=== PATIENT | male | born 1945 | race Caucasian/White ===

== ENCOUNTER 2024-02-04 20:36 | Observation (INO) ==
--- NOTE | 2024-02-04 21:05 | Emergency Department Note ---
Impression & Plan Acute pain of left hip, Ambulatory dysfunction ED Provider Note NAME: ELOY SOLER AGE: 78 SEX: M : 1945 ARRIVES VIA: Walk-In INFORMANT: Patient, ED PROVIDER(S): Colin Juarez DO CHIEF COMPLAINT: Hip pain HPI: The patient is a 78-year-old male who presented to the emergency department for an evaluation of hip pain. The patient was walking up some stairs when he felt a pulling sensation in the back of his left thigh. The patient kicked the step accidentally he thinks this is what started the pain. He has been having trouble with sciatica over the course of the last few days. The patient denies having any fever. He denies having any other trauma. The patient has not been seen by his family doctor for the symptoms. The patient has been treated for sciatica recently. ROS: See above HPI for pertinent positives & negatives. A total of 10 systems reviewed and were otherwise negative. PAST MEDICAL HISTORY: See Below PAST SURGICAL HISTORY: See Below FAMILY HISTORY: See Below SOCIAL HISTORY: See Below HOME MEDICATIONS: See Below ALLERGIES: See Below VITALS: See Below PHYSICAL EXAMINATION: GENERAL: Patient is awake alert in no acute distress patient is resting comfortably and showing no signs of anxiety EYES: The conjunctivae are clear. The pupils are round and reactive. EARS, NOSE, MOUTH AND THROAT: The nose is without any evidence of any deformity. NECK: The neck is nontender and supple. RESPIRATORY: Normal respiratory effort is noted there is no evidence of wheezing rhonchi or rales CARDIOVASCULAR: Regular rate and rhythm noted there no murmurs rubs or gallops normal S1 normal S2. GASTROINTESTINAL: The abdomen is soft. Abdomen is nontender. BACK: No midline tenderness or or step-off noted range of motion in flexion extension as well as rotation no signs of muscle spasm noted MUSCULOSKELETAL/EXTREMITIES: The patient prefers to hold the left hip in flexion. He does have palpable tenderness over the knee flexors. There is no swelling. Pulses are symmetric in both feet. SKIN: There is no obvious evidence of any rash. There are no petechiae, pallor or cyanosis noted. NEUROLOGIC: Patient is awake alert and oriented x3. MEDICAL DECISION MAKING: The patient is a 78-year-old male who has a history of diabetes who presented to the emergency department for leg pain. The patient's been having some problems with sciatica and posterior left thigh pain. He was walking up his stairs today when he missed stepped and jammed his left foot into one of the stairs. After that he felt a pulling sensation in the back of his left thigh. The patient did not appear to have any bony abnormality to my interpretation of his x-rays. He was treated with pain medication in the emergency department. He was still unable to ambulate even with the help of a walker. I discussed the patient's laboratory and radiographic studies with him. Given his inability to ambulate I discussed his condition with the on-call [facility] hospitalist. They have agreed to evaluate the patient in the emergency department for further jaylon gement and disposition. Triage Nursing notes reviewed. Prior medical records reviewed Vital Signs: reviewed and remarkable for elevated blood pressure. Differential diagnosis: Fracture, subluxation, dislocation, contusion, ligamentous injury, neurovascular, compartment syndrome, rhabdomyolysis, as well as other pathologies. ER treatment provided: See below Diagnostics interpreted by me: ECG: none Cardiac Monitoring: An order was placed for continuous cardiac monitoring. The monitor shows a rate of 58 bpm with sinus bradycardia. Laboratory studies: As stated above and show below. Imaging studies: See below. Radiographic imaging was reviewed by myself Consultation(s): I discussed this case with Dr. Yang who is on-call for the [facility]. Past Med/Surg History Problem List (Updated 02/04/24 @ 23:19 by Colin Juarez DO) Ambulatory dysfunction (Acute) Acute pain of left hip (Acute) Neurogenic claudication due to lumbar spinal stenosis Diabetes type 2, controlled Diabetes HTN (hypertension) Medical History Hypercholesteremia BPH (benign prostatic hyperplasia) Hypothyroidism Carpal tunnel syndrome Surgical History History of carpal tunnel surgery Social History Smoking Status: Never smoker Hx Alcohol Use: Yes Alcohol type: beer and wine Alcohol type Comment: socially a few times a year Hx Substance Use: No Preferred Language: Romanian Visual Impairment: No Limitations Hearing Ability: Hard of Hearing Beliefs That Will Affect Care: None marital status: Current Living Situation: Spouse current occupational status: employed current occupation: [employer] Feels Safe at Home: Yes Allergies Allergies Allergy/AdvReac Type Severity Reaction Status Date / Time No Known Drug Allergies AdvReac Verified 01/12/24 14:32 pollen extracts AdvReac Verified 01/12/24 14:32 cats AdvReac Uncoded 01/12/24 14:32 Home Meds Home Medications Medication Instructions Recorded Confirmed aspirin 81 mg capsule 81 mg PO DAILY 07/06/22 02/04/24 cholecalciferol (vitamin D3) 25 25 mcg PO DAILY 07/06/22 02/04/24 mcg (1,000 unit) capsule gabapentin 400 mg capsule 800 mg PO BID 07/06/22 02/04/24 levothyroxine 150 mcg capsule 150 mcg PO DAILY 07/06/22 02/04/24 lisinopril 5 mg tablet 5 mg PO DAILY 07/06/22 02/04/24 multivitamin 1 tab PO DAILY 07/06/22 02/04/24 saw palmetto 450 mg capsule 450 mg PO BID 07/06/22 02/04/24 glimepiride 2 mg tablet 2 mg PO BID 01/12/24 02/04/24 simvastatin 40 mg tablet 40 mg PO DAILY 02/04/24 02/04/24 tamsulosin 0.4 mg capsule 0.8 mg PO DAILY 02/04/24 02/04/24 Results & Data (ED) Vital Signs Vital Signs - 24 hr 02/04/24 20:38 02/04/24 23:04 Temperature 36.6 C Temperature Source Temporal Artery Scan Pulse Rate 68 58 L Respiratory Rate 18 Blood Pressure 157/99 H Blood Pressure Mean 118 Pulse Oximetry 97 Oxygen Delivery Method Room Air Sepsis Recent Fever Within 48 Hours No Sepsis New/Unexplained Change in Mental Status No Sepsis Action Taken by Nursing No Action Required Home Medications Current Medication List: was personally reviewed by me Administered Medications Discontinued Medications Oxycodone HCl (Oxycodone Hcl Ir 5 Mg Tab (Immediate Release)) 5 mg PO NOW STA Stop: 02/04/24 20:49 Last Admin: 02/04/24 21:48 Dose: 5 mg Documented By: TOÑA Imaging Data Attestation: I personally reviewed and interpreted this imaging study as follows: My Impression: X-ray of the left femur left hip and pelvis were obtained in the emergency department. My interpretation is no definite fracture, final report pending. Discharge Plan Visit Data Chief Complaint: Hip Pain Stated Complaint: LT HIP POPPED/PAIN, THREW HIP OUT WALKING ED Provider: Colin Juarez Discharge Problem: Acute pain of left hip, Ambulatory dysfunction Patient Disposition: Being Evaluated by Hospitalist Forms Stand Alone Forms: [facility] Prescriptions Prescriptions: No Action lisinopril 5 mg tablet 5 mg PO DAILY levothyroxine 150 mcg capsule 150 mcg PO DAILY gabapentin 400 mg capsule 800 mg PO BID saw palmetto 450 mg capsule 450 mg PO BID Rx Instructions: give with food (meal/snack) aspirin 81 mg capsule 81 mg PO DAILY cholecalciferol (vitamin D3) 25 mcg (1,000 unit) capsule 25 mcg PO DAILY multivitamin Tablet 1 tab PO DAILY glimepiride 2 mg tablet 2 mg PO BID simvastatin 40 mg tablet 40 mg PO DAILY tamsulosin 0.4 mg capsule 0.8 mg PO DAILY Referrals Referrals: Angel Dorsey DO [Primary Care Provider] -
[2024-02-04] MEDS: oxyCODONE HCL IR 5 MG TAB (IMMEDIATE RELEASE) PO STA (21:48)
[2024-02-04] MEDS: MoRPHine SULFATE 4 MG/ML 1 ML CARP\\VIAL IV STA (23:38)
--- NOTE | 2024-02-04 23:38 | History & Physical Report ---
Date of Service February 04, 2024 Assessment & Plan (1) Left hamstring injury: (2) Hamstring tendon rupture: (3) Diabetes: (4) HTN (hypertension): (5) BPH (benign prostatic hyperplasia): Plan High-grade tear of left hamstring tendons- Patient with severe pain left posterior upper thigh causing ambulatory dysfunction CT scan of abdomen pelvis was negative CT scan of left femur shows high-grade tear of hamstring tendons, with recommendation for MRI of left hip Acetaminophen 650 mg by mouth every 6 hours as needed for mild pain or fever Morphine sulfate 2 mg IV every 3 hours as needed for moderate pain Morphine sulfate 4 mg IV every 3 hours as needed for severe pain Radiology is recommending MRI of left hip, which was initially avoided due to severe claustrophobia, but will be ordered with sedation, lorazepam 0.5 mg IV x 1 Consult orthopedic surgery Diabetes mellitus with neuropathy- Hold glimepiride Placed on Accu-Cheks with NovoLog SSI Continue gabapentin Hypertension- Hold lisinopril BPH with LUTS- Continue tamsulosin History of Present Illness Chief Complaint: The patient presents to the emergency department with worsening left hip and in particular left posterior upper leg pain over the past week Primary Care Provider: Angel Dorsey DO The patient is a 78-year-old male with a past medical history including diabetes mellitus, hypertension, and neurogenic claudication due to lumbar spinal stenosis. He presents to the emergency department with report of initially developing pain in his left posterior upper thigh about 1 week ago, after hearing a loud pop while he was bending over. Today he was walking up steps, and his foot hit the top step, and he developed acutely worsened pain in the same left upper posterior thigh area. He has been unable to walk due to the severity of this pain. Allergies Allergy/AdvReac Type Severity Reaction Status Date / Time cat dander AdvReac Unknown Unknown Verified 02/04/24 23:35 No Known Drug Allergies AdvReac Unknown Verified 02/04/24 23:35 pollen extracts AdvReac Unknown Verified 02/04/24 23:35 Home Medications Medication Instructions Recorded Confirmed Type aspirin 81 mg capsule 81 mg PO DAILY 07/06/22 02/04/24 History cholecalciferol (vitamin D3) 25 25 mcg PO DAILY 07/06/22 02/04/24 History mcg (1,000 unit) capsule gabapentin 400 mg capsule 800 mg PO BID 07/06/22 02/04/24 History levothyroxine 150 mcg capsule 150 mcg PO DAILY 07/06/22 02/04/24 History lisinopril 5 mg tablet 5 mg PO DAILY 07/06/22 02/04/24 History multivitamin 1 tab PO DAILY 07/06/22 02/04/24 History saw palmetto 450 mg capsule 450 mg PO BID 07/06/22 02/04/24 History glimepiride 2 mg tablet 2 mg PO BID 01/12/24 02/04/24 History simvastatin 40 mg tablet 40 mg PO DAILY 02/04/24 02/04/24 History tamsulosin 0.4 mg capsule 0.8 mg PO DAILY 02/04/24 02/04/24 History Past Med/Surg History Problem List (Updated 02/05/24 @ 02:16 by Shubham Bravo MD) BPH (benign prostatic hyperplasia) Hamstring tendon rupture Left hamstring injury Ambulatory dysfunction (Acute) Acute pain of left hip (Acute) Neurogenic claudication due to lumbar spinal stenosis Diabetes type 2, controlled Diabetes HTN (hypertension) Medical History Hypercholesteremia BPH (benign prostatic hyperplasia) Hypothyroidism Carpal tunnel syndrome Surgical History History of carpal tunnel surgery Social History Smoking Status: Never smoker Hx Alcohol Use: Yes Alcohol type: beer and wine Alcohol type Comment: socially a few times a year Hx Substance Use: No Preferred Language: Georgian Visual Impairment: No Limitations Hearing Ability: Hard of Hearing Beliefs That Will Affect Care: None marital status: Current Living Situation: Spouse current occupational status: employed current occupation: [employer] Feels Safe at Home: Yes Review of Systems Review of Systems: The patient denies chest pain, palpitations, shortness of breath, dyspnea on exertion, cough, lower extremity swelling, sore throat, fevers, chills, sweats, weight change, fatigue, nausea, vomiting, diarrhea , constipation, abdominal pain, pelvic pain, blood in urine or stool, dysuria, urinary frequency or urgency, lightheadedness, dizziness, headache, memory loss, loss of consciousness, rash, abnormal bruising or bleeding, focal or generalized weakness, numbness or tingling in arms or right leg, generalized arthralgias or myalgias, back or neck pain, or night sweats. The review of systems is otherwise negative other than for that already noted above, and at least 10 systems have been reviewed. Physical Exam Physical Exam: The patient is awake, alert and oriented 3, well developed and well nourished, normocephalic and atraumatic, lying in bed and in no acute distress. HEENT--PERRL, EOMI, mucous membranes and oropharynx normal. Neck--supple. No JVD. No bruits. Thyroid normal, trachea midline, no adenopathy. Heart--normal S1 and S2. No murmurs, rubs or gallops. Lungs--clear bilaterally, no respiratory distress, no accessory muscle use. Abdomen--normal bowel sounds and soft. Nontender. Nondistended, no hernias or masses, no organomegaly. Extremities--no cyanosis or clubbing. No edema. There are good distal pulses b/l. Dermatologic--normal skin turgor, normal color, no abnormal lymph nodes, no rash. Neurologic--cranial nerves II through XII grossly intact. Rheumatologic--decreased range of motion left lower extremity at the pelvis and hip area, with severe pain in that region upon palpation Psychiatric--normal affect. Results & Data Results & Data Vital Signs (Past 12 Hours) Vital Signs Temp Pulse Pulse Resp BP BP Pulse Ox 02/04/24 23:14 62 20 94 02/04/24 23:14 62 20 159/88 H 94 02/04/24 23:04 58 L 02/04/24 20:38 36.6 C 68 18 157/99 H 97 O2 Del Method 02/04/24 23:14 Room Air 02/04/24 23:14 Room Air 02/04/24 23:04 02/04/24 20:38 Room Air Laboratory Results Laboratory Results WBC 8.93 K/ul (4.8-10.8) 02/04/24 23:08 RBC 4.90 M/uL (4.70-6.10) 02/04/24 23:08 Hgb 14.1 g/dl (14.0-18.0) 02/04/24 23:08 Hct 42.7 % (42.0-52.0) 02/04/24 23:08 MCV 87.1 fL (80.0-100.0) 02/04/24 23:08 MCH 28.8 pg (25.0-34.0) 02/04/24 23:08 MCHC 33.0 g/dL (32.0-36.0) 02/04/24 23:08 RDW Std Deviation 44.4 fL (36.4-46.3) 02/04/24 23:08 RDW Coeff of Edwige 14.0 % (11.5-14.5) 02/04/24 23:08 Plt Count 189 K/uL (130-400) 02/04/24 23:08 MPV 10.3 fL (9.4-12.4) 02/04/24 23:08 Immature Gran % (Auto) 1.7 % 02/04/24 23:08 Neut % (Auto) 65.1 % 02/04/24 23:08 Lymph % (Auto) 21.2 % 02/04/24 23:08 [place] % (Auto) 7.6 % 02/04/24 23:08 Eos % (Auto) 3.8 % 02/04/24 23:08 Baso % (Auto) 0.6 % 02/04/24 23:08 Neut # (Auto) 5.82 K/uL (1.40-6.50) 02/04/24 23:08 Lymph # (Auto) 1.89 K/uL (1.20-3.40) 02/04/24 23:08 [place] # (Auto) 0.68 K/uL (0.11-0.59) H 02/04/24 23:08 Eos # (Auto) 0.34 K/uL (0.00-0.50) 02/04/24 23:08 Baso # (Auto) 0.05 K/uL (0.00-0.20) 02/04/24 23:08 Immature Gran # (Auto) 0.15 K/uL (0.01-0.20) 02/04/24 23:08 ESR 27 mm/hr (0-20) H 02/04/24 23:08 Sodium 138 mmol/L (136-145) 02/04/24 23:08 Potassium 4.1 mmol/L (3.5-5.1) 02/04/24 23:08 Chloride 104 mmol/L (98-107) 02/04/24 23:08 Carbon Dioxide 26 mmol/L (21-32) 02/04/24 23:08 Anion Gap 8 (3-11) 02/04/24 23:08 BUN 18 mg/dl (6-23) 02/04/24 23:08 Creatinine 0.93 mg/dl (0.6-1.4) 02/04/24 23:08 Est Cr Clr Drug Dosing Not Reportable 02/04/24 23:08 Est GFR ( Amer) 90.2 ml/min 02/04/24 23:08 Est GFR (Non-Af Amer) 77.8 ml/min 02/04/24 23:08 BUN/Creatinine Ratio 19.4 (10-20) 02/04/24 23:08 Glucose 106 mg/dl (70-99(Fasting)) H 02/04/24 23:08 Calcium 9.3 mg/dl (8.6-10.3) 02/04/24 23:08 Total Bilirubin 0.5 mg/dl (0.2-1.0) 02/04/24 23:08 AST 28 U/L (13-39) 02/04/24 23:08 ALT 24 U/L (7-52) 02/04/24 23:08 Alkaline Phosphatase 64 U/L (34-104) 02/04/24 23:08 Total Creatine Kinase 284 U/L (30-223) H 02/04/24 23:08 C-Reactive Protein < 0.50 mg/dl (0-0.5) 02/04/24 23:08 Total Protein 7.6 gm/dl (6.0-8.3) 02/04/24 23:08 Albumin 4.5 gm/dl (3.4-5.0) 02/04/24 23:08 Globulin 3.1 gm/dl (2.5-4.0) 02/04/24 23:08 Albumin/Globulin Ratio 1.5 (0.9-2) 02/04/24 23:08 Lipase 27 U/L (11-82) 02/04/24 23:08 Impressions Abdomen/Pelvis CT 02/04/24 23:27 Exam(s): CT ABDOMEN + PELVIS Without Contrast EXAM: CT Abdomen and Pelvis Without Intravenous Contrast CLINICAL HISTORY: Reason for exam: severe left side pelvis and hip pain. TECHNIQUE: Axial computed tomography images of the abdomen and pelvis without intravenous contrast. Automated exposure control was utilized for the study. A dose lowering technique was utilized adhering to the principles of ALARA. COMPARISON: No relevant prior studies available. FINDINGS: Lung bases: Unremarkable. No mass. No consolidation. ABDOMEN: Liver: Hepatic steatosis. Gallbladder and bile ducts: Unremarkable. No calcified stones. No ductal dilation. Pancreas: Unremarkable. No ductal dilation. Spleen: Unremarkable. No splenomegaly. Adrenals: Unremarkable. No mass. Kidneys and ureters: Nonobstructing 9 mm RIGHT upper pole renal stone. Stomach and bowel: Diverticulosis, without acute diverticulitis. No small bowel obstruction. No free intraperitoneal air. PELVIS: Appendix: No findings to suggest acute appendicitis. Bladder: Unremarkable. No stones. Reproductive: Unremarkable as visualized. ABDOMEN and PELVIS: Intraperitoneal space: Unremarkable. No free air. No significant fluid collection. Bones/joints: Degenerative changes of the spine. No acute fracture. No dislocation. Soft tissues: Unremarkable. Vasculature: Atherosclerotic changes of the aorta. No abdominal aortic aneurysm. Lymph nodes: Unremarkable. No enlarged lymph nodes. IMPRESSION: 1. Nonobstructing 9 mm RIGHT upper pole renal stone. 2. Diverticulosis, without acute diverticulitis. No small bowel obstruction. No free intraperitoneal air. Electronically signed by: Drew Estrada MD 02/05/24 01:[address] 02/04/24 23:28 Exam(s): CT EXTREMITY LEFT LOWER Without Contrast EXAM: CT Left Lower Extremity Without Intravenous Contrast CLINICAL HISTORY: Reason for exam: severe left hip and thigh pain. TECHNIQUE: Axial computed tomography images of the left lower extremity without intravenous contrast. Automated exposure control was utilized for the study. A dose lowering technique was utilized adhering to the principles of ALARA. COMPARISON: No relevant prior studies available. FINDINGS: Bones/joints: No fracture of the femur. Soft tissues: High-grade tear of the hamstring tendons, which is limited in evaluation on CT scan. Recommend hip MRI for further evaluation. IMPRESSION: High-grade tear of the hamstring tendons, which is limited in evaluation on CT scan. Recommend hip MRI for further evaluation. Electronically signed by: Drew Estrada MD 02/05/24 01:36 AM Code Status & VTE Plan Code Status Full code VTE Prophylaxis Plan VTE Prophylaxis will be ordered: Yes PG Care Time/CCT Total # of Minutes Spent Total Time Spent with Patient: Total time spent is greater than 50% in coordination of care (as documented) at patient's floor/unit and/or counseling patient: Coding Level of Care Code 67437 INT INP/OBS CARE 3MIN Diagnoses Left hamstring injury S76.302A Hamstring tendon rupture S76.319A Diabetes E11.9 HTN (hypertension) I10 BPH (benign prostatic hyperplasia) N40.0
[2024-02-04 23:42] LABS: Basophils # (auto) 0.05 K/uL (0.00-0.20); Basophils % (auto) 0.6 %; Eosinophils # (auto) 0.34 K/uL (0.00-0.50); Eosinophils % (auto) 3.8 %; Hematocrit (blood only) 42.7 % (42.0-52.0); Hemoglobin 14.1 g/dl (14.0-18.0); Immature Granulocytes # (auto) 0.15 K/uL (0.01-0.20); Immature Granulocytes % (auto) 1.7 %; Lymphocytes # (auto) 1.89 K/uL (1.20-3.40); Lymphocytes % (auto) 21.2 %; Mean Corpuscular Hemoglobin 28.8 pg (25.0-34.0); Mean Corpuscular Volume 87.1 fL (80.0-100.0); Mean Platelet Volume 10.3 fL (9.4-12.4); Monocytes # (auto) 0.68 K/uL (0.11-0.59); Monocytes % (auto) 7.6 %; Neutrophils # (auto) 5.82 K/uL (1.40-6.50); Neutrophils % (auto) 65.1 %; Platelet Count 189 K/uL (130-400); RDW Standard Deviation 44.4 fL (36.4-46.3); White Blood Count 8.93 K/ul (4.8-10.8)
[2024-02-04 23:50] LABS: Alanine Aminotransferase 24 U/L (7-52); Albumin Globulin Ratio 1.5 (0.9-2); Albumin Level 4.5 gm/dl (3.4-5.0); Alkaline Phosphatase 64 U/L (34-104); Anion Gap 8 (3-11); Aspartate Aminotransferase 28 U/L (13-39); BUN Creatinine Ratio 19.4 (10-20); Bilirubin,Total 0.5 mg/dl (0.2-1.0); Blood Urea Nitrogen 18 mg/dl (6-23); C Reactive Protein < 0.50 mg/dl (0-0.5); Calcium 9.3 mg/dl (8.6-10.3); Carbon Dioxide 26 mmol/L (21-32); Chloride 104 mmol/L (98-107); Creatine Kinase 284 U/L (30-223); Est GFR (African American) 90.2 ml/min; Est GFR (Non-African American) 77.8 ml/min; Globulin 3.1 gm/dl (2.5-4.0); Glucose 106 mg/dl (70-99(Fasting)); Lipase 27 U/L (11-82); Potassium 4.1 mmol/L (3.5-5.1); Sodium 138 mmol/L (136-145); Total Protein 7.6 gm/dl (6.0-8.3)
--- NOTE | 2024-02-05 01:37 | CT Scan Report ---
Exam(s): CT EXTREMITY LEFT LOWER Without Contrast EXAM: CT Left Lower Extremity Without Intravenous Contrast CLINICAL HISTORY: Reason for exam: severe left hip and thigh pain. TECHNIQUE: Axial computed tomography images of the left lower extremity without intravenous contrast. Automated exposure control was utilized for the study. A dose lowering technique was utilized adhering to the principles of ALARA. COMPARISON: No relevant prior studies available. FINDINGS: Bones/joints: No fracture of the femur. Soft tissues: High-grade tear of the hamstring tendons, which is limited in evaluation on CT scan. Recommend hip MRI for further evaluation. IMPRESSION: High-grade tear of the hamstring tendons, which is limited in evaluation on CT scan. Recommend hip MRI for further evaluation. Electronically signed by: Drew Estrada MD 02/05/24 01:36 AM
--- NOTE | 2024-02-05 01:41 | CT Scan Report ---
Exam(s): CT ABDOMEN + PELVIS Without Contrast EXAM: CT Abdomen and Pelvis Without Intravenous Contrast CLINICAL HISTORY: Reason for exam: severe left side pelvis and hip pain. TECHNIQUE: Axial computed tomography images of the abdomen and pelvis without intravenous contrast. Automated exposure control was utilized for the study. A dose lowering technique was utilized adhering to the principles of ALARA. COMPARISON: No relevant prior studies available. FINDINGS: Lung bases: Unremarkable. No mass. No consolidation. ABDOMEN: Liver: Hepatic steatosis. Gallbladder and bile ducts: Unremarkable. No calcified stones. No ductal dilation. Pancreas: Unremarkable. No ductal dilation. Spleen: Unremarkable. No splenomegaly. Adrenals: Unremarkable. No mass. Kidneys and ureters: Nonobstructing 9 mm RIGHT upper pole renal stone. Stomach and bowel: Diverticulosis, without acute diverticulitis. No small bowel obstruction. No free intraperitoneal air. PELVIS: Appendix: No findings to suggest acute appendicitis. Bladder: Unremarkable. No stones. Reproductive: Unremarkable as visualized. ABDOMEN and PELVIS: Intraperitoneal space: Unremarkable. No free air. No significant fluid collection. Bones/joints: Degenerative changes of the spine. No acute fracture. No dislocation. Soft tissues: Unremarkable. Vasculature: Atherosclerotic changes of the aorta. No abdominal aortic aneurysm. Lymph nodes: Unremarkable. No enlarged lymph nodes. IMPRESSION: 1. Nonobstructing 9 mm RIGHT upper pole renal stone. 2. Diverticulosis, without acute diverticulitis. No small bowel obstruction. No free intraperitoneal air. Electronically signed by: Drew Estrada MD 02/05/24 01:41 AM
[2024-02-05] MEDS ORDERED: GLUCOSE 10 TAB/TUBE PO PRN (01:51)
[2024-02-05] MEDS ORDERED: GLUCOSE 40% GEL 15 GM TUBE PO PRN (01:51)
[2024-02-05] MEDS ORDERED: ONDANSETRON INJ 2 MG/ML 2 ML VIAL IV PRN (01:51)
[2024-02-05] MEDS ORDERED: DEXTROSE 50% 50 ML SYRINGE IV PRN (01:51)
[2024-02-05] MEDS ORDERED: ACETAMINOPHEN 325 MG TAB PO PRN (01:51)
[2024-02-05] MEDS ORDERED: MoRPHine SULFATE 4 MG/ML 1 ML CARP\\VIAL IV PRN (01:51)
[2024-02-05] MEDS ORDERED: CARBOHYDRATES FOR HYPOGLYCEMIA PO PRN (01:51)
[2024-02-05] MEDS ORDERED: MoRPHine SULFATE 2 MG/ML CARP IV PRN (01:51)
[2024-02-05] MEDS ORDERED: GLUCAGON FOR INJ 1 MG VIAL SQ PRN (01:51)
[2024-02-05] MEDS: LORazepam 0.5 MG in SYRINGE 0.25 ML IV PRN (04:23)
[2024-02-05 04:42] LABS: Appearance Urine Clear (Clear); Bilirubin Urine Negative (Negative); Blood Urine Negative (Negative); Color Urine Yellow; Glucose Urine UA Negative (Negative); Ketones Urine Negative (Negative); Leukocyte Esterase Urine Negative (Negative); Nitrite Urine Negative (Negative); Protein Urine Negative (Negative); Specific Gravity Urine 1.019 (1.000-1.030); Urobilinogen Urine Negative (Negative); pH Urine 5.5 (4.5-7.5)
[2024-02-05] MEDS: LEVOTHYROXINE SODIUM 150 MCG TABLET PO SCH (05:44)
--- NOTE | 2024-02-05 05:59 | Magnetic Resonance Report ---
Exam(s): MRI LEFT HIP Without Contrast EXAM: MR Left Lower Extremity Without Intravenous Contrast, Hip CLINICAL HISTORY: Reason for exam: high grade tear of left hamstring tendons. TECHNIQUE: Multiplanar magnetic resonance images of the left hip without intravenous contrast. COMPARISON: No relevant prior studies available. FINDINGS: Bones/joints: There is subtle bone marrow edema in the ischial tuberosity as well as in the left hamstring muscles and in the surrounding intermuscular planes. No acute fracture. No dislocation. Mild osteoarthritic changes seen in bilateral hip joints Moderate prostatomegaly. Trace free fluid seen in the pelvis. There is sigmoid colonic diverticulosis. IMPRESSION: MR findings are consistent with tear in the left proximal hamstring muscles Electronically signed by: Skip Tena MD 02/05/24 05:58 AM
--- NOTE | 2024-02-05 06:55 | XRay Report ---
SINGLE VIEW PELVIS; 3 VIEWS LEFT FEMUR CLINICAL HISTORY: Left hip pain. FINDINGS: An AP view of the pelvis with AP, frog-leg, and crosstable lateral views of the left femur are obtained. No prior studies are available for comparison at the time of dictation. The skeletal st ructures are osteopenic. There is no radiographic evidence of acute fracture involving the hips or [place]iel [place] pelvis. Mild arthritic change and joint space narrowing is seen in the hips. 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 There is no radiographic evidence of left femoral fracture. The left knee joint is grossly maintained. Lumbosacral spondylosis is partially visualized. The overlying soft tissues are within normal limits. IMPRESSION: 1. No acute bony abnormality is seen involving the hips or pelvis. 2. There is no radiographic evidence of left femoral fracture. Electronically signed by: Alfredo Alonso M.D. 02/05/2024 6:54 AM
[2024-02-05] MEDS: CHOLECALCIFEROL 25 MCG (1000 UNITS) TAB PO SCH (07:59)
[2024-02-05] MEDS: GABAPENTIN 400 MG CAP PO SCH (07:59)
[2024-02-05] MEDS: MULTIVITAMIN TAB PO SCH (08:00)
[2024-02-05] MEDS: lisinopril 5 MG TAB PO SCH (08:00)
[2024-02-05] MEDS: ASPIRIN 81 MG ECTAB PO SCH (08:00)
[2024-02-05] MEDS: TAMSULOSIN HCL 0.4 MG CAP PO SCH ×2 (08:00→20:37)
[2024-02-05] MEDS: SIMVASTATIN 40 MG TAB PO SCH (08:00)
[2024-02-05 08:06] LABS: Basophils # (auto) 0.07 K/uL (0.00-0.20); Basophils % (auto) 0.9 %; Eosinophils # (auto) 0.31 K/uL (0.00-0.50); Hematocrit (blood only) 40.2 % (42.0-52.0); Immature Granulocytes # (auto) 0.09 K/uL (0.01-0.20); Immature Granulocytes % (auto) 1.2 %; Lymphocytes # (auto) 1.74 K/uL (1.20-3.40); Lymphocytes % (auto) 22.5 %; Mean Corpuscular Hemoglobin 28.4 pg (25.0-34.0); Mean Corpuscular Hgb Conc 32.3 g/dL (32.0-36.0); Mean Corpuscular Volume 87.8 fL (80.0-100.0); Mean Platelet Volume 10.3 fL (9.4-12.4); Neutrophils # (auto) 4.83 K/uL (1.40-6.50); Neutrophils % (auto) 62.4 %; Platelet Count 163 K/uL (130-400); RDW Standard Deviation 44.8 fL (36.4-46.3); Red Blood Count 4.58 M/uL (4.70-6.10); White Blood Count 7.74 K/ul (4.8-10.8)
[2024-02-05] MEDS: INSULIN ASPART PER UNIT CHARGE SC SCH (08:09)
[2024-02-05 08:13] LABS: Estimated Average Glucose 151 mg/dl; Hemoglobin A1C 6.9 % (4.5-5.6)
[2024-02-05] MEDS ORDERED: Nursing to Pharmacy Communication SCH (08:15)
[2024-02-05 08:27] LABS: Albumin Level 4.2 gm/dl (3.4-5.0); BUN Creatinine Ratio 18.6 (10-20); Calcium 9.1 mg/dl (8.6-10.3); Creatinine Clr Calc Pharmacy 76.8 ml/min; Est GFR (African American) 85.7 ml/min; Est GFR (Non-African American) 73.9 ml/min; Magnesium 2.2 mg/dl (1.7-2.4); Phosphorus 3.7 mg/dl (2.5-4.9)
--- NOTE | 2024-02-05 21:53 | Hospitalist Progress Note ---
Date of Service February 05, 2024 Assessment & Plan (1) Left hamstring injury: (2) Hamstring tendon rupture: (3) Diabetes: (4) HTN (hypertension): (5) BPH (benign prostatic hyperplasia): Plan High-grade tear of left hamstring tendons- Patient with severe pain left posterior upper thigh causing ambulatory dysfunction CT scan of abdomen pelvis was negative CT scan of left femur shows high-grade tear of hamstring tendons, with recommendation for MRI of left hip Acetaminophen 650 mg by mouth every 6 hours as needed for mild pain or fever Morphine sulfate 2 mg IV every 3 hours as needed for moderate pain Morphine sulfate 4 mg IV every 3 hours as needed for severe pain Radiology is recommending MRI of left hip, which was initially avoided due to severe claustrophobia, but will be ordered with sedation, lorazepam 0.5 mg IV x 1 Consult orthopedic surgery Diabetes mellitus with neuropathy- Hold glimepiride Placed on Accu-Cheks with NovoLog SSI Continue gabapentin Hypertension- Hold lisinopril BPH with LUTS- Continue tamsulosin urinary retention. Patient needs to be straight cath. Likely secondary to opiates. Admission and Anticipated Discharge Date Admission Date: February 04, 2024 Subjective Patient reports he is having difficulty urinating Review of Systems Review of Systems: All systems reviewed & are unremarkable except as noted in HPI & below Physical Exam Physical Exam: The patient is awake, alert and oriented 3, well developed and well nourished, normocephalic and atraumatic, lying in bed and in no acute distress. HEENT--PERRL, EOMI, mucous membranes and oropharynx normal. Neck--supple. No JVD. No bruits. Thyroid normal, trachea midline, no adenopathy. Heart--normal S1 and S2. No murmurs, rubs or gallops. Lungs--clear bilaterally, no respiratory distress, no accessory muscle use. Abdomen--normal bowel sounds and soft. Nontender. Nondistended, no hernias or masses, no organomegaly. Extremities--no cyanosis or clubbing. No edema. There are good distal pulses b/l. Results & Data Results & Data Vital Signs (Past 12 Hours) Vital Signs Temp Pulse Resp BP Pulse Ox O2 Del Method 02/05/24 21:19 36.8 C 54 L 18 151/79 H 95 Room Air PG Care Time/CCT Total # of Minutes Spent Total Time Spent with Patient: Total time spent is greater than 50% in coordination of care (as documented) at patient's floor/unit and/or counseling patient: Coding Level of Care Code 26952 SUB INP/OBS CARE 2MIN Diagnoses Left hamstring injury S76.302A Hamstring tendon rupture S76.319A Diabetes E11.9 HTN (hypertension) I10 BPH (benign prostatic hyperplasia) N40.0
[2024-02-06 06:03] LABS: Basophils # (auto) 0.06 K/uL (0.00-0.20); Basophils % (auto) 0.8 %; Eosinophils # (auto) 0.26 K/uL (0.00-0.50); Eosinophils % (auto) 3.5 %; Hematocrit (blood only) 45.7 % (42.0-52.0); Hemoglobin 14.7 g/dl (14.0-18.0); Immature Granulocytes # (auto) 0.08 K/uL (0.01-0.20); Immature Granulocytes % (auto) 1.1 %; Lymphocytes # (auto) 1.52 K/uL (1.20-3.40); Lymphocytes % (auto) 20.5 %; Mean Corpuscular Hemoglobin 28.3 pg (25.0-34.0); Mean Corpuscular Hgb Conc 32.2 g/dL (32.0-36.0); Mean Corpuscular Volume 88.1 fL (80.0-100.0); Mean Platelet Volume 9.5 fL (9.4-12.4); Monocytes # (auto) 0.63 K/uL (0.11-0.59); Monocytes % (auto) 8.5 %; Neutrophils # (auto) 4.86 K/uL (1.40-6.50); Neutrophils % (auto) 65.6 %; Platelet Count 178 K/uL (130-400); RDW Coefficient of Variation 14.3 % (11.5-14.5); RDW Standard Deviation 45.7 fL (36.4-46.3); Red Blood Count 5.19 M/uL (4.70-6.10); White Blood Count 7.41 K/ul (4.8-10.8)
[2024-02-06 06:34] LABS: Albumin Level 4.4 gm/dl (3.4-5.0); Anion Gap 7 (3-11); BUN Creatinine Ratio 17.6 (10-20); Blood Urea Nitrogen 21 mg/dl (6-23); Calcium 9.3 mg/dl (8.6-10.3); Carbon Dioxide 28 mmol/L (21-32); Chloride 101 mmol/L (98-107); Creatinine Clr Calc Pharmacy 62.6 ml/min; Est GFR (African American) 66.9 ml/min; Est GFR (Non-African American) 57.8 ml/min; Glucose 152 mg/dl (70-99(Fasting)); Magnesium 2.3 mg/dl (1.7-2.4); Phosphorus 4.3 mg/dl (2.5-4.9); Sodium 136 mmol/L (136-145)
--- NOTE | 2024-02-06 08:28 | Orthopedic Consultation ---
Date of Service February 06, 2024 Assessment & Plan (1) Left hamstring injury: Imaging was reviewed. MRI shows a tear of the proximal hamstring. No fractures. He can weight bear as tolerated. We will order some PT. No surgical intervention planned. Can follow up as outpatient in [address] Trujillo and imaging reviewed. (2) Hamstring tendon rupture: History of Present Illness Reason for Consultation: . Requesting Physician: . Attending Physician: Sae Ramsey . 78 year old patient admitted with left hip/buttock pain. He has a h/o sciatica symptoms in this leg. About 1 1/2 weeks ago he was sweeping and felt a pop in the posterior aspect of the hip, had immediate pain. Then about a week later he caught his foot walking up the stairs and had worsened symptoms. Describes pain posterior, around the buttock/hamstring area. No groin pain. No numbness or tingling. Allergies Allergy/AdvReac Type Severity Reaction Status Date / Time cat dander AdvReac Unknown Unknown Verified 02/04/24 23:35 No Known Drug Allergies AdvReac Unknown Verified 02/04/24 23:35 pollen extracts AdvReac Unknown Verified 02/04/24 23:35 Home Medications Medication Instructions Recorded Confirmed Type aspirin 81 mg capsule 81 mg PO DAILY 07/06/22 02/04/24 History cholecalciferol (vitamin D3) 25 25 mcg PO DAILY 07/06/22 02/04/24 History mcg (1,000 unit) capsule gabapentin 400 mg capsule 800 mg PO BID 07/06/22 02/04/24 History levothyroxine 150 mcg capsule 150 mcg PO DAILY 07/06/22 02/04/24 History lisinopril 5 mg tablet 5 mg PO DAILY 07/06/22 02/04/24 History multivitamin 1 tab PO DAILY 07/06/22 02/04/24 History saw palmetto 450 mg capsule 450 mg PO BID 07/06/22 02/04/24 History glimepiride 2 mg tablet 2 mg PO BID 01/12/24 02/04/24 History simvastatin 40 mg tablet 40 mg PO DAILY 02/04/24 02/04/24 History tamsulosin 0.4 mg capsule 0.8 mg PO DAILY 02/04/24 02/04/24 History Past Med/Surg History Problem List BPH (benign prostatic hyperplasia) Hamstring tendon rupture Left hamstring injury Ambulatory dysfunction (Acute) Acute pain of left hip (Acute) Neurogenic claudication due to lumbar spinal stenosis Diabetes type 2, controlled Diabetes HTN (hypertension) Medical History Hypercholesteremia Hypothyroidism Carpal tunnel syndrome Surgical History History of carpal tunnel surgery Social History Smoking Status: Never smoker Second Hand Exposure: No; Do You Dip or Chew Tobacco: No; Hx Alcohol Use: No Hx Substance Use: No Preferred Language: Frisian Communication Ability: Effective Visual Impairment: No Limitations Hearing Ability: Hard of Hearing Stain Wiper Required: No Beliefs That Will Affect Care: None marital status: Current Living Situation: Spouse current occupational status: employed current occupation: [employer] Other Information That Helps Us Care for You: No Feels Safe at Home: Yes Safety Concerns: Feels Safe At This Time Assistive Devices: Cane Review of Systems All systems reviewed & are unremarkable except as noted in HPI & below. Physical Exam . alert and oriented. NAD Left leg: painless range of motion of left hip, no stiffness. No obvious ecchymosis. Tender to palpation around proximal hamstring area. No pain with knee or ankle range of motion. NVI. able to dorsiflex and plantarflex. Results & Data Results & Data Laboratory Results . Diagnostic Findings . PG Care Time/CCT Total # of Minutes Spent Total Time Spent with Patient: Total time spent is greater than 50% in coordination of care (as documented) at patient's floor/unit and/or counseling patient: Coding Level of Care Code 20447 IN/OBS CONSULT LVL 3,45M Diagnoses Left hamstring injury S76.302A Hamstring tendon rupture S76.319A
--- NOTE | 2024-02-06 12:01 | Discharge Summary ---
Date of Service February 06, 2024 Admission HPI Per Admitting Provider The patient is a 78-year-old male with a past medical history including diabetes mellitus, hypertension, and neurogenic claudication due to lumbar spinal stenosis. He presents to the emergency department with report of initially developing pain in his left posterior upper thigh about 1 week ago, after hearing a loud pop while he was bending over. Today he was walking up steps, and his foot hit the top step, and he developed acutely worsened pain in the same left upper posterior thigh area. He has been unable to walk due to the severity of this pain. Principal Diagnosis left hamstring tear Discharge Exam The patient is awake, alert and oriented 3, well developed and well nourished, normocephalic and atraumatic, lying in bed and in no acute distress. HEENT--PERRL, EOMI, mucous membranes and oropharynx normal. Neck--supple. No JVD. No bruits. Thyroid normal, trachea midline, no adenopathy. Heart--normal S1 and S2. No murmurs, rubs or gallops. Lungs--clear bilaterally, no respiratory distress, no accessory muscle use. Abdomen--normal bowel sounds and soft. Nontender. Nondistended, no hernias or masses, no organomegaly. Extremities--no cyanosis or clubbing. No edema. There are good distal pulses b/l. Discharge Data Allergies Allergy/AdvReac Type Severity Reaction Status Date / Time cat dander AdvReac Unknown Unknown Verified 02/04/24 23:35 No Known Drug Allergies AdvReac Unknown Verified 02/04/24 23:35 pollen extracts AdvReac Unknown Verified 02/04/24 23:35 Consultations 02/04/24 22:59 ED Decision to Admit Stat 02/05/24 02:18 Consult Orthopedic Surgery Routine Ordered Studies 02/04/24 23:27 CT Abd and Pelvis [CT abd pelvis wo con] Stat 02/04/24 23:28 CT leg [CT femur LT wo con] Stat 02/05/24 02:20 MRI Hip [MR hip LT wo con] Routine Hospital Course (1) Left hamstring injury: (2) Hamstring tendon rupture: (3) Diabetes: (4) HTN (hypertension): (5) BPH (benign prostatic hyperplasia): Plan High-grade tear of left hamstring tendons- Patient with severe pain left posterior upper thigh causing ambulatory dysfunction CT scan of abdomen pelvis was negative CT scan of left femur shows high-grade tear of hamstring tendons, with recommendation for MRI of left hip Appreciate input from ortho: Imaging was reviewed. MRI shows a tear of the proximal hamstring. No fractures. He can weight bear as tolerated. No surgical intervention planned. Can follow up as outpatient in 1 month. Diabetes mellitus with neuropathy- resume home meds Continue gabapentin Hypertension- resume home meds BPH with LUTS- Continue tamsulosin urinary retention. Patient needed to be straight cath, this resolved on day 2 of hopsital stay. Likely secondary to opiates. Total Time Total Time Spent Total Time Spent (In Minutes): 32 Discharge Plan Discharge Items Patient Disposition: Home - Self-Care Reason For Visit: ACUTE L HIP AND LEG PAIN Discharge Diagnosis: acute L hip Activity: Resume your previous activity Non-emergency contact: Primary Care Provider Call non-emergency contact if: you have any medication questions Follow-up/Referrals: Angel Dorsey DO [Primary Care Provider] - 02/16/24 11:10 am Diet: Carb Consistent or DM2 and Heart Healthy Addtl Attending Provider Instructions: When using your ice pack. Always keep a cloth between your skin and the ice pack, and press firmly against all the curves of the affected area. Do not apply ice for longer than 15 to 20 minutes at a time, and do not fall asleep with the ice on your skin. You may wrap your thigh to help with pain. Please followup with Dr. Trujillo (Orthopedics) in about 1 months. Also folllow-up with your PCP in 1-2 weeks. Tylenol 650 mg scheduled 4 times a day Breakthrough pain (above 4 out of 10 pain) Take oxycodone 5 mg PO every 8hours as needed Take miralax on days you take oxycodone. Do not operate heavy machinery when using oxycodone. Oxycodone can cause confusion. Pending Studies at Discharge: No Stand-Alone Forms: My [employer], Smoking Cessation Medications and DC Order Prescriptions: New acetaminophen 325 mg Tablet 650 mg PO Q6H Qty: 120 0RF oxycodone 5 mg tablet 5 mg PO Q8H PRN (Reason: breakthrough pain) Qty: 10 0RF Continued lisinopril 5 mg tablet 5 mg PO DAILY levothyroxine 150 mcg capsule 150 mcg PO DAILY gabapentin 400 mg capsule 800 mg PO BID saw palmetto 450 mg capsule 450 mg PO BID Rx Instructions: give with food (meal/snack) aspirin 81 mg capsule 81 mg PO DAILY cholecalciferol (vitamin D3) 25 mcg (1,000 unit) capsule 25 mcg PO DAILY multivitamin Tablet 1 tab PO DAILY glimepiride 2 mg tablet 2 mg PO BID simvastatin 40 mg tablet 40 mg PO DAILY tamsulosin 0.4 mg capsule 0.8 mg PO DAILY Discharge Orders: Discharge Order (Routine); Ordered 02/06/24 Ordered By: Sae Edwards/Other Patient Handouts: Managing Type 2 Diabetes Admission Data Admit Date/Time: 02/04/24 23:37 Attending Provider: Sae Ramsey Admit Provider: Shubham Bravo Primary Care Provider: Angel Dorsey Other Providers: Shubham Bravo; Evin Trujillo Other Interventions: Discharge Summary Assessment (RN) Last Done: 02/06/24 12:11 Coding Level of Care Code 98821 INP/OBS DISCH >30 MIN Diagnoses Left hamstring injury S76.302A Hamstring tendon rupture S76.319A Diabetes E11.9 HTN (hypertension) I10 BPH (benign prostatic hyperplasia) N40.0
== END 2024-02-06 13:36 | disposition home or self-care (01) ==
LOC: 3N 20:36 → ED 20:36 → SUATTDRO 23:37 → 3N 02-05 01:38